=== PATIENT | female | born 2000 | race African-American/Black ===

== ENCOUNTER 2021-01-02 15:25 | Emergency (ER) | payer MEDICAID, OTHER ==
[~2021-01-02] VITALS: Ht 167.6 cm; Wt 62.1 kg
[2021-01-02 17:50] VITALS: BP 120/74
== END 2021-01-02 17:57 | disposition home or self-care (01) ==
LOC: ER 15:25
DX: N76.0 Acute vaginitis (principal); N39.0 Urinary tract infection, site not specified
CPT/HCPCS: 81002; 81025

== ENCOUNTER 2021-01-04 07:12 | Emergency (ER) | payer MEDICAID ==
[~2021-01-04] VITALS: Ht 167.6 cm; Wt 61.7 kg
[2021-01-04 07:23] VITALS: BP 117/73
[2021-01-04] MEDS ORDERED: cefTRIAXone SOD 1,000 MG VL IM ONE (07:45)
[2021-01-04 08:11] LABS: Urine Bacteria FEW /hpf (None Seen); Urine Blood TRACE /uL (Negative); Urine Mucus FEW (None Seen); Urine Specific Gravity 1.022 (1.001-1.035); Urine WBC 14 /hpf (0 - 5)
== END 2021-01-04 08:58 | disposition home or self-care (01) ==
LOC: ER 07:12
DX: N76.0 Acute vaginitis (principal); N39.0 Urinary tract infection, site not specified; B37.3 Candidiasis of vulva and vagina; Z32.02 Encounter for pregnancy test, result negative
CPT/HCPCS: 81001; 81025; 87210; 96372; 99284; J0696

== ENCOUNTER 2021-01-09 17:29 | Emergency (ER) | payer MEDICAID ==
[~2021-01-09] VITALS: Ht 167.6 cm; Wt 63.5 kg
[2021-01-09 19:18] VITALS: BP 123/77
== END 2021-01-09 19:27 | disposition home or self-care (01) ==
LOC: ER 17:29
DX: T78.40XA Allergy, unspecified, initial encounter (principal); Z87.440 Personal history of urinary (tract) infections; X58.XXXA Exposure to other specified factors, initial encounter

== ENCOUNTER 2021-01-25 16:55 | Emergency (ER) | payer MEDICAID ==
[~2021-01-25] VITALS: Ht 165.1 cm; Wt 61.7 kg
[2021-01-25 17:23] LABS: Urine Bacteria FEW /hpf (None Seen); Urine Blood Negative /uL (Negative); Urine Mucus FEW (None Seen); Urine Specific Gravity 1.024 (1.001-1.035); Urine WBC 2 /hpf (0 - 5)
[2021-01-25 18:35] VITALS: BP 106/82
== END 2021-01-25 19:05 | disposition home or self-care (01) ==
LOC: ER 16:55
DX: N39.0 Urinary tract infection, site not specified (principal)
CPT/HCPCS: 81001

== ENCOUNTER 2021-02-16 08:07 | Emergency (ER) | payer MEDICAID, OTHER ==
[~2021-02-16] VITALS: Ht 167.6 cm; Wt 62.1 kg
[2021-02-16 08:08] VITALS: BP 113/71
== END 2021-02-16 10:18 | disposition home or self-care (01) ==
LOC: ER 08:07
DX: S16.1XXA Strain of muscle, fascia and tendon at neck level, initial encounter (principal); Z87.440 Personal history of urinary (tract) infections; V43.52XA Car driver injured in collision with other type car in traffic accident, initial encounter; Y93.89 Activity, other specified; Y92.488 Other paved roadways as the place of occurrence of the external cause; Y99.8 Other external cause status
CPT/HCPCS: 72040

== ENCOUNTER 2021-05-14 18:13 | Emergency (ER) | payer MEDICAID, OTHER ==
[~2021-05-14] VITALS: Ht 165.1 cm; Wt 54.4 kg
[2021-05-14 18:13] VITALS: BP 93/52
[2021-05-14] MEDS ORDERED: AZITHROMYCIN 250 MG TAB PO ONE (19:45)
[2021-05-14] MEDS ORDERED: cefTRIAXone SOD 1,000 MG VL IM ONE (19:45)
== END 2021-05-14 21:40 | disposition home or self-care (01) ==
LOC: ER 18:14
DX: N76.0 Acute vaginitis (principal); Z20.2 Contact with and (suspected) exposure to infections with a predominantly sexual mode of transmission

== ENCOUNTER 2021-06-27 08:21 | Emergency (ER) | payer MEDICAID ==
[~2021-06-27] VITALS: Ht 167.6 cm; Wt 62.1 kg
[2021-06-27 08:45] VITALS: BP 108/70
[2021-06-27] MEDS ORDERED: methylPREDNISolone SOD SUCC 125 MG/2 ML VL IM ONE (09:00)
[2021-06-27] MEDS ORDERED: cefTRIAXone SOD 1,000 MG VL IM ONE (09:00)
== END 2021-06-27 09:37 | disposition home or self-care (01) ==
LOC: ER 08:21
DX: J03.90 Acute tonsillitis, unspecified (principal); Z87.440 Personal history of urinary (tract) infections
CPT/HCPCS: 71046; 96372; 99284; J0696; J2930

== ENCOUNTER 2021-08-19 07:04 | Emergency (ER) | payer MEDICAID, OTHER ==
[~2021-08-19] VITALS: Ht 160 cm; Wt 72.6 kg
[2021-08-19] MEDS ORDERED: cefTRIAXone SOD 1,000 MG VL IM ONE (11:45)
[2021-08-19] MEDS ORDERED: LIDOCAINE 2%HCL (LOCAL ANESTH.) INJ 20ML MDV ONE (11:48)
[2021-08-19 17:36] VITALS: BP 95/53
== END 2021-08-19 17:36 | disposition left against medical advice (07) ==
LOC: ER 07:04
DX: J03.90 Acute tonsillitis, unspecified (principal); R50.9 Fever, unspecified; R11.10 Vomiting, unspecified; Z20.822 Contact with and (suspected) exposure to COVID-19
CPT/HCPCS: 36415; 87426; 96372; 99283; J0696

== ENCOUNTER 2022-08-15 07:52 | Emergency (ER) | payer MEDICAID ==
[~2022-08-15] VITALS: Ht 165.1 cm; Wt 69.1 kg
[2022-08-15 08:19] VITALS: BP 111/76
[2022-08-15 08:54] LABS: Urine Bacteria NONE SEEN /hpf (None Seen); Urine Blood Negative /uL (Negative); Urine Specific Gravity 1.015 (1.001-1.035); Urine WBC 8 /hpf (0 - 5)
[2022-08-15] MEDS ORDERED: METR500T PO (09:05)
[2022-08-15] MEDS ORDERED: DOXY100C2 PO (09:05)
[2022-08-15] MEDS ORDERED: cefTRIAXone SOD 500 MG VL IM ONE (09:15)
== END 2022-08-15 09:21 | disposition home or self-care (01) ==
LOC: ER 07:52
DX: A59.01 Trichomonal vulvovaginitis (principal); Z20.2 Contact with and (suspected) exposure to infections with a predominantly sexual mode of transmission; Z79.899 Other long term (current) drug therapy
CPT/HCPCS: 81001; 81025; 87210; 87491; 87591; 96372; 99284; J0696

== ENCOUNTER 2022-12-06 08:56 | Emergency (ER) | payer MEDICAID ==
[~2022-12-06] VITALS: Ht 162.6 cm; Wt 56.0 kg
[~2022-12-06 08:56] MED LIST: DOXY100C2 PO; METR500T PO
[2022-12-06 10:03] VITALS: BP 110/75
[2022-12-06] MEDS ORDERED: PHEN200T16 PO (10:05)
[2022-12-06] MEDS ORDERED: BACDST PO (10:05)
[2022-12-06 10:08] LABS: Urine Bacteria NONE SEEN /hpf (None Seen); Urine Blood Negative /uL (Negative); Urine Specific Gravity 1.021 (1.001-1.035); Urine WBC 4 /hpf (0 - 5)
== END 2022-12-06 10:30 | disposition home or self-care (01) ==
LOC: ER 08:56
DX: N39.0 Urinary tract infection, site not specified (principal); Z79.899 Other long term (current) drug therapy
CPT/HCPCS: 81001; 81025

== ENCOUNTER 2022-12-12 22:07 | Emergency (ER) | payer MEDICAID ==
[~2022-12-12] VITALS: Ht 157.5 cm; Wt 55.9 kg
[~2022-12-12 22:07] MED LIST changes: +BACDST PO; +PHEN200T16 PO
[2022-12-13 01:58] VITALS: BP 127/76
[2022-12-13] MEDS ORDERED: FLUC150T2 PO (02:24)
== END 2022-12-13 02:30 | disposition home or self-care (01) ==
LOC: ER 22:07
DX: B37.31 Acute candidiasis of vulva and vagina (principal); Z79.2 Long term (current) use of antibiotics; Z79.899 Other long term (current) drug therapy

== ENCOUNTER 2023-01-13 16:49 | Emergency (ER) | payer MEDICAID ==
[~2023-01-13] VITALS: Ht 165.1 cm; Wt 57.1 kg
[~2023-01-13 16:49] MED LIST changes: +FLUC150T2 PO
[2023-01-13 17:05] VITALS: BP 102/84
[2023-01-13 17:50] LABS: Urine Bacteria FEW /hpf (None Seen); Urine Blood 1+ /uL (Negative); Urine Specific Gravity 1.017 (1.001-1.035); Urine WBC 5 /hpf (0 - 5)
[2023-01-13] MEDS ORDERED: FLUC150T38 PO (18:25)
== END 2023-01-13 22:34 | disposition home or self-care (01) ==
LOC: ER 16:49
DX: B37.31 Acute candidiasis of vulva and vagina (principal); F17.210 Nicotine dependence, cigarettes, uncomplicated
CPT/HCPCS: 81001